=== PATIENT | male | born 1980 | race Caucasian/White ===

== ENCOUNTER → 2016-09-20 | Outpatient (CLI) | payer MEDICARE, MEDICAID ==
[~2016-09-20] MED LIST: ASA3 PO; BACTDSB PO; CLOTRIMAZOLE 1% 15 GM CREAM TP ONE; DIPR15O TP; FLUO15CR35 TP; LIDOCAINE HCL 2% 5 ML JELLY TP ONE; OLAN10TA3 PO; SANTO TP; SERT100T12 PO; TRIAMCINOLONE 0.1% 15 GM CREAM TP ONE
[2016-09-20 09:03] VITALS: BP 129/59
== END | disposition home or self-care (01) ==
LOC: HBOWC 08:53
PROVIDERS: ATTEND Emergency Medicine
DX: L97.411 Non-pressure chronic ulcer of right heel and midfoot limited to breakdown of skin (principal); L97.811 Non-pressure chronic ulcer of other part of right lower leg limited to breakdown of skin; L95.0 Livedoid vasculitis; I87.2 Venous insufficiency (chronic) (peripheral); R21 Rash and other nonspecific skin eruption; F20.0 Paranoid schizophrenia; K21.9 Gastro-esophageal reflux disease without esophagitis; Z86.14 Personal history of Methicillin resistant Staphylococcus aureus infection; Z79.02 Long term (current) use of antithrombotics/antiplatelets
CPT/HCPCS: 87070; 87205; 97597

== ENCOUNTER → 2016-10-04 | Outpatient (CLI) | payer MEDICARE, MEDICAID ==
[~2016-10-04] MED LIST changes: -CLOTRIMAZOLE 1% 15 GM CREAM TP ONE; -LIDOCAINE HCL 2% 5 ML JELLY TP ONE; -TRIAMCINOLONE 0.1% 15 GM CREAM TP ONE
[2016-10-04 10:18] VITALS: BP 126/70
== END | disposition home or self-care (01) ==
LOC: HBOWC 09:31
PROVIDERS: ATTEND Emergency Medicine
DX: L97.411 Non-pressure chronic ulcer of right heel and midfoot limited to breakdown of skin (principal); L95.0 Livedoid vasculitis; I87.2 Venous insufficiency (chronic) (peripheral); F20.0 Paranoid schizophrenia; Z86.14 Personal history of Methicillin resistant Staphylococcus aureus infection
CPT/HCPCS: 97597

== ENCOUNTER → 2016-10-18 | Outpatient (CLI) | payer MEDICARE, MEDICAID ==
[2016-10-18 08:57] VITALS: BP 131/64
== END | disposition home or self-care (01) ==
LOC: HBOWC 08:40
PROVIDERS: ATTEND Emergency Medicine
DX: L97.411 Non-pressure chronic ulcer of right heel and midfoot limited to breakdown of skin (principal); L95.0 Livedoid vasculitis; F20.0 Paranoid schizophrenia; I87.2 Venous insufficiency (chronic) (peripheral); K21.9 Gastro-esophageal reflux disease without esophagitis; Z86.14 Personal history of Methicillin resistant Staphylococcus aureus infection

== ENCOUNTER → 2016-11-01 | Outpatient (CLI) | payer MEDICARE, MEDICAID ==
[~2016-11-01] MED LIST changes: -DIPR15O TP; -FLUO15CR35 TP; +TRIAMCINOLONE 0.1% 15 GM CREAM TP ONE
[2016-11-01 09:22] VITALS: BP 130/60
== END | disposition home or self-care (01) ==
LOC: HBOWC 08:41
PROVIDERS: ATTEND Emergency Medicine
DX: L97.411 Non-pressure chronic ulcer of right heel and midfoot limited to breakdown of skin (principal); I87.2 Venous insufficiency (chronic) (peripheral); L95.0 Livedoid vasculitis; R21 Rash and other nonspecific skin eruption; F20.0 Paranoid schizophrenia; L30.4 Erythema intertrigo; K21.9 Gastro-esophageal reflux disease without esophagitis; Z86.14 Personal history of Methicillin resistant Staphylococcus aureus infection; Z79.82 Long term (current) use of aspirin
CPT/HCPCS: 97597

== ENCOUNTER → 2016-11-15 | Outpatient (CLI) | payer MEDICARE, MEDICAID ==
[~2016-11-15] MED LIST changes: +FLUO15CR35 TP; -TRIAMCINOLONE 0.1% 15 GM CREAM TP ONE
[2016-11-15 09:14] VITALS: BP 131/79
== END | disposition home or self-care (01) ==
LOC: HBOWC 08:42
PROVIDERS: ATTEND Emergency Medicine
DX: L97.411 Non-pressure chronic ulcer of right heel and midfoot limited to breakdown of skin (principal); L95.0 Livedoid vasculitis; K21.9 Gastro-esophageal reflux disease without esophagitis; F20.0 Paranoid schizophrenia; Z86.14 Personal history of Methicillin resistant Staphylococcus aureus infection

== ENCOUNTER → 2016-11-29 | Outpatient (CLI) | payer MEDICARE, MEDICAID ==
[~2016-11-29] MED LIST changes: -BACTDSB PO; -SANTO TP; +TETRACAINE/BENZOCAINE/BUTAMBEN 32 GM GEL TP ONE; +TRIAMCINOLONE 0.1% 15 GM CREAM TP ONE
[2016-11-29 10:25] VITALS: BP 125/72
== END | disposition home or self-care (01) ==
LOC: HBOWC 08:45
PROVIDERS: ATTEND Emergency Medicine
DX: L97.411 Non-pressure chronic ulcer of right heel and midfoot limited to breakdown of skin (principal); L95.0 Livedoid vasculitis; F20.0 Paranoid schizophrenia; K21.9 Gastro-esophageal reflux disease without esophagitis; Z86.14 Personal history of Methicillin resistant Staphylococcus aureus infection

== ENCOUNTER → 2016-12-13 | Outpatient (CLI) | payer MEDICARE, MEDICAID ==
[~2016-12-13] MED LIST changes: +DIPR15O TP; -TETRACAINE/BENZOCAINE/BUTAMBEN 32 GM GEL TP ONE; -TRIAMCINOLONE 0.1% 15 GM CREAM TP ONE
[2016-12-13 12:25] VITALS: BP 132/74
== END | disposition home or self-care (01) ==
LOC: HBOWC 11:17
PROVIDERS: ATTEND Emergency Medicine
DX: L97.411 Non-pressure chronic ulcer of right heel and midfoot limited to breakdown of skin (principal); L95.0 Livedoid vasculitis; L23.9 Allergic contact dermatitis, unspecified cause; F20.0 Paranoid schizophrenia; K21.9 Gastro-esophageal reflux disease without esophagitis; Z79.82 Long term (current) use of aspirin
CPT/HCPCS: 97597

== ENCOUNTER → 2016-12-20 | Outpatient (CLI) | payer MEDICARE, MEDICAID ==
[~2016-12-20] MED LIST changes: -ASA3 PO; -FLUO15CR35 TP; +LIDOCAINE HCL 2% 5 ML JELLY TP ONE; +LIDOCAINE HCL 4% 50 ML SOLUTION TP ONE
[2016-12-20 10:04] VITALS: BP 131/79
== END | disposition home or self-care (01) ==
LOC: HBOWC 09:50
PROVIDERS: ATTEND Emergency Medicine
DX: L97.411 Non-pressure chronic ulcer of right heel and midfoot limited to breakdown of skin (principal); L95.0 Livedoid vasculitis; F20.0 Paranoid schizophrenia; K21.9 Gastro-esophageal reflux disease without esophagitis; Z86.14 Personal history of Methicillin resistant Staphylococcus aureus infection
CPT/HCPCS: 97597

== ENCOUNTER → 2017-01-03 | Outpatient (CLI) | payer MEDICARE, MEDICAID ==
[~2017-01-03] MED LIST changes: -LIDOCAINE HCL 2% 5 ML JELLY TP ONE; -LIDOCAINE HCL 4% 50 ML SOLUTION TP ONE
[2017-01-03 09:06] VITALS: BP 108/68
[2017-01-03 11:16] LABS: PROTHROMBIN TIME 10.5 SEC (9.4-11.6)
[2017-01-04 08:48] LABS: HOMOCYSTEINE, TOTAL 10.8 umol/L (0.0-15.0)
[2017-01-04 15:55] LABS: HEPATITIS C AB SCREEN <0.1 s/co ratio (0.0-0.9)
[2017-01-04 20:16] LABS: TREPONEMA PALLIDUM AB -TPPA Negative (Negative)
[2017-01-05 21:07] LABS: ANTITHROMBIN, ENZYMATIC ACTVTY 107 % (75-135); DRVVT-LUPUS ANTICOAGULANT 45.7 sec (0.0-47.0); LUP PTT-CORRECTED MIX REFLEX? YES; LUPUS PTTc-CORRECTED/MIX 40.9 sec (0.0-40.6); PROTEIN C FUNCTIONAL(ACTIVITY) 139 % (73-180); PROTEIN S AG-TOTAL 161 % (60-150); PROTEIN S, FREE 157 % (57-157); PT-LUPUS ANTICOAGULANT 10.8 sec (9.6-11.5)
[2017-01-06 06:09] LABS: HEXAGONAL PHOS NEUTRALIZ REFLX 7 sec (0-11); LUP HEXAGONL PHOS REFLEX? YES; LUPUS ANTICOAG INTERPRETION Comment:
[2017-01-12 10:43] LABS: ANTI NUCLEAR AB,DIRECT(SCREEN) Negative (Negative)
== END | disposition home or self-care (01) ==
LOC: HBOWC 08:30
PROVIDERS: ATTEND Emergency Medicine
DX: L97.411 Non-pressure chronic ulcer of right heel and midfoot limited to breakdown of skin (principal); K21.9 Gastro-esophageal reflux disease without esophagitis; L95.0 Livedoid vasculitis; F20.0 Paranoid schizophrenia; M79.671 Pain in right foot; R21 Rash and other nonspecific skin eruption; Z86.14 Personal history of Methicillin resistant Staphylococcus aureus infection; Z79.82 Long term (current) use of aspirin
CPT/HCPCS: G0463 ×28; 81241; 82595; 83090; 85300; 85301; 85305; 85306; 85613; 85651; 85732; 86038; 86140; 86147; 86430; 86705; 86706; 86780; 86803; 87350